=== PATIENT | male | born 1975 | race Caucasian/White ===

== ENCOUNTER 2016-12-02 09:55 | Emergency (ER) | payer OTHER ==
[2016-12-02 11:41] LABS: HEMOGLOBIN 16.5 gm/dl (14.0-17.5); RED BLOOD COUNT 4.65 M/UL (4.20-5.50); WHITE BLOOD COUNT 5.6 K/UL (4.5-11.0)
[2016-12-02 11:58] LABS: BUN/CREATININE RATIO 12 (0-10)
== END 2016-12-02 14:32 | disposition home or self-care (01) ==
LOC: ER1 09:55
PROVIDERS: Physician Assistant
DX: S09.90XA Unspecified injury of head, initial encounter (principal); S16.1XXA Strain of muscle, fascia and tendon at neck level, initial encounter; S46.912A Strain of unspecified muscle, fascia and tendon at shoulder and upper arm level, left arm, initial encounter; F17.210 Nicotine dependence, cigarettes, uncomplicated; W01.10XA Fall on same level from slipping, tripping and stumbling with subsequent striking against unspecified object, initial encounter
CPT/HCPCS: 36415; 70450; 72125; 73010; 73030; 80053; 81001; 83690; 85025; 96361; 96374; 99284; J2405

== ENCOUNTER 2021-07-02 23:48 | Observation (INO) | payer OTHER ==
[~2021-07-02] VITALS: Ht 185.4 cm; Wt 68.0 kg
[2021-07-03 00:32] LABS: HEMOGLOBIN 15.4 gm/dl (14.0-17.5); RED BLOOD COUNT 4.34 M/UL (4.20-5.50); WHITE BLOOD COUNT 5.3 K/UL (4.5-11.0)
[2021-07-03 00:57] LABS: BUN/CREATININE RATIO 5 (0-10)
[2021-07-03] MEDS ORDERED: METOPROLOL TART25 MG PO (11:45)
[2021-07-03] MEDS ORDERED: NICOTINE GUM4 MG BU (11:47)
[2021-07-03] MEDS ORDERED: NITROSTAT0.4 MG SL (11:49)
[2021-07-03] MEDS ORDERED: IBU-200200 MG PO (11:50)
[2021-07-03] MEDS ORDERED: POTASSIUM CHLO10 ME1 PO (11:51)
[2021-07-03] MEDS ORDERED: LORATADINE10 MG PO (11:52)
[2021-07-03] MEDS ORDERED: LISINOPRIL5 MG PO (15:02)
[2021-07-03] MEDS ORDERED: AUGMENTIN 875-1 EACH PO (15:02)
== END 2021-07-03 14:59 | disposition home or self-care (01) ==
LOC: ER1 23:48 → CDU 07-03 04:30 → ER1 07-03 04:30 → CDU 07-03 06:11
PROVIDERS: Student in an Organized Health Care Education/Training Program; ADMIT Internal Medicine
DX: U07.1 COVID-19 (principal); J32.9 Chronic sinusitis, unspecified; I10 Essential (primary) hypertension; F10.10 Alcohol abuse, uncomplicated; F17.210 Nicotine dependence, cigarettes, uncomplicated; R53.1 Weakness; R00.2 Palpitations; Z79.899 Other long term (current) drug therapy
CPT/HCPCS: ECHO; 70450; 70496; 70498; 70551; 71045; 71275; 80053; 80061; 82550; 82553; 83880; 84484; 85025; 85379; 85610; 85730; 93005; 93306; 99285; G0378; J3411; Q9967; U0002

== ENCOUNTER 2021-08-24 16:14 | Emergency (ER) | payer OTHER ==
[~2021-08-24 16:14] MED LIST: AUGMENTIN 875-1 EACH PO; IBU-200200 MG PO; LISINOPRIL5 MG PO; LORATADINE10 MG PO; METOPROLOL TART25 MG PO; NICOTINE GUM4 MG BU; NITROSTAT0.4 MG SL; POTASSIUM CHLO10 ME1 PO
[2021-08-24 17:03] LABS: HEMOGLOBIN 15.6 gm/dl (14.0-17.5); RED BLOOD COUNT 4.38 M/UL (4.20-5.50); WHITE BLOOD COUNT 6.8 K/UL (4.5-11.0)
[2021-08-24 17:20] LABS: BUN/CREATININE RATIO 9 (0-10)
[2021-08-24] MEDS ORDERED: PRILOSEC OTC20 MG PO (18:58)
[2021-08-24] MEDS ORDERED: ZOFRAN ODT 4 MG4 MG SL (18:58)
[2021-08-24] MEDS ORDERED: CARAFATE 1 GM TA1 GM PO (18:58)
[2021-08-24] MEDS ORDERED: HYDROCODON-ACE1 EAC4 PO (18:58)
== END 2021-08-24 19:10 | disposition home or self-care (01) ==
LOC: ER1 16:14
DX: R10.13 Epigastric pain (principal); R10.11 Right upper quadrant pain; R10.816 Epigastric abdominal tenderness; R10.811 Right upper quadrant abdominal tenderness; R11.2 Nausea with vomiting, unspecified; F17.200 Nicotine dependence, unspecified, uncomplicated
CPT/HCPCS: 80053; 81001; 83690; 85025; 96374; 96375; 99284; J2270; J2405

== ENCOUNTER → 2021-09-03 | Outpatient (CLI) | payer OTHER ==
[~2021-09-03] MED LIST changes: +CARAFATE 1 GM TA1 GM PO; +HYDROCODON-ACE1 EAC4 PO; +PRILOSEC OTC20 MG PO; +ZOFRAN ODT 4 MG4 MG SL
== END ==
LOC: EXRD 10:30
DX: R10.11 Right upper quadrant pain (principal)
CPT/HCPCS: 76705

== ENCOUNTER → 2021-10-21 | Outpatient (CLI) | payer OTHER ==
[2021-10-21 15:59] LABS: HEMOGLOBIN 14.9 gm/dl (14.0-17.5); RED BLOOD COUNT 4.25 M/UL (4.20-5.50); WHITE BLOOD COUNT 5.6 K/UL (4.5-11.0)
[2021-10-21 16:45] LABS: BUN/CREATININE RATIO 8 (0-10)
[2021-10-24 16:14] LABS: SOLUBLE LIVER AG (IGG AB) 0.6 units (0.0-20.0)
== END ==
LOC: LAB 14:31
PROVIDERS: Nurse Practitioner Family
DX: I10 Essential (primary) hypertension (principal); R53.83 Other fatigue
CPT/HCPCS: 36415; 80053; 80061; 82607; 82746; 83036; 83540; 83550; 83690; 84153; 84439; 84443; 84550; 85025

== ENCOUNTER → 2021-11-11 | Outpatient (CLI) | payer OTHER | LOC: NM 13:00 | DX: R10.11 Right upper quadrant pain (principal) | CPT/HCPCS: 78227; A9537 ==

== ENCOUNTER → 2022-01-27 | Outpatient (CLI) | payer OTHER | LOC: ECHO 09:00 → NM 10:00 | DX: I25.119 Atherosclerotic heart disease of native coronary artery with unspecified angina pectoris (principal); R07.9 Chest pain, unspecified; R06.02 Shortness of breath; I10 Essential (primary) hypertension | CPT/HCPCS: ECHO; 78452; 93017; 93306; A9502; J2785 ==